=== PATIENT | male | born 1970 | race Caucasian/White ===

== ENCOUNTER → 2016-07-28 | Outpatient (CLI) | payer BC ==
--- NOTE | 2016-07-28 11:44 | RAD ---
Indication knee pain. No history of injury. AP and lateral views of the right knee were obtained. No acute or significant bony finding is seen
== END | disposition home or self-care (01) ==
LOC: DXRAD 11:25
PROVIDERS: ATTEND Physician Assistant
DX: M25.561 Pain in right knee (principal)
CPT/HCPCS: 73560

== ENCOUNTER → 2016-11-15 | Outpatient (CLI) | payer BC ==
--- NOTE | 2016-11-15 15:02 | RAD ---
Indication left rib pain for 3 days. No known injury. A single view of the chest was obtained and is compared to an examination March 02, 2016. Films targeted to left ribs were also obtained. The heart and pulmonary vessels appear normal. There are suspect background changes of fibrosis. There is no consolidated pneumonia. There is no pleural fluid. No pneumothorax is seen. Films of left ribs appear normal. IMPRESSION: No acute finding in the chest. Normal plain films left ribs
== END | disposition home or self-care (01) ==
LOC: DXRADRC 14:46
PROVIDERS: ATTEND Nurse Practitioner Family
DX: R07.81 Pleurodynia (principal)
CPT/HCPCS: 71101

== ENCOUNTER → 2017-02-01 | Outpatient (CLI) | payer BC ==
--- NOTE | 2017-02-01 10:53 | RAD ---
Indication: Right hip pain. Time of exam 0912 hours. 2 views right hip demonstrate normal femoral acetabular alignment. The joint space is maintained. The femoral head and neck are intact. No fractures are seen. Impression: No acute bony abnormality is detected.
--- NOTE | 2017-02-01 10:54 | RAD ---
Indication: Low back pain. Time of exam 0911 hours. Curvature and alignment is normal. Vertebral body heights are maintained. No acute compression fracture is seen. There is multilevel degenerative disc disease with variable disc space narrowing and marginal spurring, greatest L3-4, L4-5 and L5-S1 levels. There are atherosclerotic calcifications within the abdominal aorta. Impression: Lumbar spondylosis. No acute bony abnormality is detected.
== END | disposition home or self-care (01) ==
LOC: DXRAD 08:55
PROVIDERS: ATTEND Nurse Practitioner Family
DX: M51.36 Other intervertebral disc degeneration, lumbar region (principal); M53.87 Other specified dorsopathies, lumbosacral region; I70.0 Atherosclerosis of aorta
CPT/HCPCS: 72100; 73502

== ENCOUNTER → 2017-12-06 | Outpatient (CLI) | payer BC ==
--- NOTE | 2017-12-06 15:36 | RAD ---
Pelvis with right hip, 3 views, 12/06/2017: HISTORY: Chronic right hip pain There is mild narrowing of the right hip joint with subchondral sclerosis and mild marginal spurring. There is a lesser degree of degenerative change at the left hip joint. No fracture or dislocation is identified. The periarticular soft tissues are unremarkable. IMPRESSION: 1. Mild degenerative change at the right hip joint. 2. No acute bony abnormality is detected. Electronically signed by: Senthil Stokes MD (12/06/2017 3:33 PM) [facility]
== END | disposition home or self-care (01) ==
LOC: DXRAD 11:02
PROVIDERS: ATTEND Neuromusculoskeletal Medicine & OMM
DX: M16.11 Unilateral primary osteoarthritis, right hip (principal); M54.16 Radiculopathy, lumbar region
CPT/HCPCS: 73502

== ENCOUNTER 2019-05-09 16:20 | Emergency (ER) | payer BC ==
[~2019-05-09] VITALS: Ht 172.7 cm; Wt 90.4 kg
--- NOTE | 2019-05-09 16:41 | PHYS DOC ---
Past History Past Medical History: Depression, GERD Additional Past Medical Histor: hyperlipidemia (ELAINE RENTERIA DO) Additional Past Surgical Histo: anal fissure, hernia (ELAINE RENTERIA DO) Smoking: Non-smoker Alcohol Use: Rarely Drug Use: None (ELAINE RENTERIA DO) Adult General Chief Complaint Chief Complaint: SHORTNESS OF BREATH [facility] HPI Patient is a 48 year old male who presents for evaluation of chest pressure and shortness of air. Onset of symptoms over the past couple of hours. Symptoms worse with exertion. Earlier today patient had sudden onset of vision changes and could not remember his computer passcode. Those symptoms have resolved. Patient felt dizzy during that episode and felt like he might pass out. His vision changes and dizziness have resolved. Patient has not had similar symptoms like this in the past. Patient had a stress test but was more than 1 year ago. Risk factors include hyperlipidemia (ELAINE RENTERIA DO) Review of Systems Review of Systems Constitutional: Denies fever or chills [] Eyes: Denies change in visual acuity, redness, or eye pain [] HENT: Denies nasal congestion or sore throat [] Respiratory: Denies cough but has shortness of breath [] Cardiovascular: No additional information not addressed in HPI [] GI: Denies abdominal pain, nausea, vomiting, bloody stools or diarrhea [] : Denies dysuria or hematuria [] Musculoskeletal: Denies back pain or joint pain [] Integument: Denies rash or skin lesions [] Neurologic: Denies headache, focal weakness or sensory changes. No focal deficits but was dizzy earlier today [] Endocrine: Denies polyuria or polydipsia [] All other systems were reviewed and found to be within normal limits, except as documented in this note. (ELAINE RENTERIA DO) Allergies Allergies Allergies Coded Allergies Type Severity Reaction Last Updated Verified No Known Drug Allergies 03/02/16 No (ELAINE RENTERIA DO) Physical Exam Physical Exam Constitutional: Well developed, well nourished, mild to moderate distress, non- toxic appearance currently. [] HENT: Normocephalic, atraumatic, bilateral external ears normal, oropharynx moist, no oral exudates, nose normal. [] Eyes: PERRL, EOMI, conjunctiva normal, no discharge. [] Neck: Normal range of motion, no tenderness, supple, no stridor. [] Cardiovascular:Heart rate regular rhythm, no murmur [] Lungs & Thorax: Bilateral breath sounds clear to auscultation [] Abdomen: Bowel sounds normal, soft, no tenderness, no masses, no pulsatile masses. [] Skin: Warm, dry, no erythema, no rash. [] Back: No tenderness, no CVA tenderness. [] Extremities: No tenderness, no cyanosis, no clubbing, ROM intact, no edema. [] Neurologic: Alert and oriented X 3, normal motor function, normal sensory function, no focal deficits noted. [] Psychologic: Affect normal, judgement normal, mood normal. [] (ELAINE RENTERIA DO) Current Patient Data Vital Signs vitals normal, normal O2 sats, not tachycardia (ELAINE RENTERIA DO) EKG EKG Normal sinus rhythm, rate 63, inverted T waves lead III, not STEMI, read at 1636 (ELAINE RENTERIA DO) Radiology/Procedures Radiology/Procedures PATIENT: ADÁN WOLFF ACCOUNT: [id number] : 1970 LOCATION: ER AGE: 48 SEX: M EXAM STATUS: REG ER ORD. PHYSICIAN: ELAINE RENTERIA DO REASON: short of air, chest pressure PROCEDURE: PORTABLE CHEST 1V Examination: PORTABLE CHEST 1V History: Shortness of breath, chest pressure Comparison/Correlation: 03/02/2016 2 view chest x-ray exam, 11/15/2016 left RIBS with PA view of the chest Findings: Portable frontal view of chest was obtained. Heart size and pulmonary vasculature are normal. No infiltrate or pleural effusion. No pneumothorax. Bony structures are unremarkable. Subtle dextro convexity of the thoracic spine is present. Impression: No suspicious process. Electronically signed by: Dale Harvey MD (05/09/2019 5:05 PM) [id number] DICTATED AND SIGNED BY: DALE HARVEY MD DATE: 05/09/191704 CC: SHABANA DILLARD; ELAINE RENTERIA DO ~ Impressions: Signed PATIENT: ADÁN WOLFF ACCOUNT: [id number] : 1970 LOCATION: ER AGE: 48 SEX: M EXAM STATUS: REG ER ORD. PHYSICIAN: ELAINE RENTERIA DO REASON: dizziness, near syncope PROCEDURE: CT HEAD WO CONTRAST CT HEAD WO CONTRAST History: Dizziness, near syncope Comparison: None. Technique: Noncontrast CT imaging was performed of the head. Exposure: One or more of the following individualized dose reduction techniques were utilized for this examination: 1. Automated exposure control 2. Adjustment of the mA and/or kV according to patient size 3. Use of iterative reconstruction technique. Findings: No acute extra-axial or parenchymal hemorrhage is identified. There is no significant intra-axial mass effect, midline shift, or extra-axial fluid collection. The mcgregor-white differentiation of the major vascular territories is preserved. The ventricles, sulci, and cisterns are within normal limits in size and configuration. The mastoid air cells and the visualized paranasal sinuses are aerated. No acute calvarial abnormality is identified. Impression: 1. No acute intracranial abnormality is identified. Electronically signed by: Rosana Tirado MD (05/09/2019 5:11 PM) [id number] DICTATED AND SIGNED BY: ROSANA TIRADO MD DATE: 05/09/19 171 CC: SHABANA DILLARD; ELAINE RENTERIA DO ~ (ELAINE RENTERIA DO) Radiology/Procedures PROCEDURE: CT ANGIOGRAPHY CHEST EXAM: CT chest with contrast - pulmonary embolus protocol CLINICAL HISTORY: chest pain/pressure, shortness of air. COMPARISON: None. TECHNIQUE: CT of the chest following the administration of intravenous contrast during the pulmonary arterial phase. Axial, coronal and sagittal reformatted images were generated including MIP images. ---PQRS compliance statement - One or more of the following individualized dose reduction techniques were utilized for this study: 1. Automated exposure control 2. Adjustment of the mA and/or kV according to patient size 3. Use of iterative reconstruction technique--- FINDINGS: CHEST: Diagnostic quality: Adequate. Pulmonary emboli: None seen Right heart strain: None Pulmonary arteries: Normal in caliber. Heart is not enlarged. No pericardial effusion. Coronary artery calcifications are seen. Mild ectasia ascending aorta. No pleural effusion or pneumothorax. No axillary lymphadenopathy. No mediastinal or hilar lymphadenopathy. Linear opacities lower lobes and lingula likely scarring/atelectasis. Left upper lobe calcified granuloma. No suspicious lung nodule or mass is seen. Visualized Upper abdomen: Unremarkable Bones: No aggressive osseous lesion is seen. IMPRESSION: 1. No evidence for acute pulmonary embolus. 2. Linear opacities bilaterally likely scarring/atelectasis. No lobar consolidation. Electronically signed by: Abraham Harris MD (05/09/2019 7:06 PM) [id number] (SARWAT AL DO) Course & Med Decision Making Course & Med Decision Making Pertinent Labs and Imaging studies reviewed. (See chart for details) 1740 stable, feels better at this time. Patient has some minimal chest pressure at this time. CT head was negative for acute findings. Patient has no focal deficits or lateralizing signs. Dose of aspirin added in light of that negative CT finding. Initial cardiac marker, EKG and other lab work are unremarkable. Chest x-ray was clear. In light of patient's unusual symptoms a CT chest PE protocol ordered 1800 patient is chest pain-free at rest. Additional information just provided is that he is significant other was diagnosed with influenza about a week ago. Care of patient will be assumed by Dr. Al at shift change. We will get repeat troponin at 1835. Differential diagnosis includes cardiac, IN, pneumonia, pneumothorax, pulmonary embolism, rhythm disturbance (ELAINE RENTERIA DO) Dragon Disclaimer Dragon Disclaimer This electronic medical record was generated, in whole or in part, using a voice recognition dictation system. (ELAINE RENTERIA DO) Departure Departure: Impression: Primary Impression: Chest pain Additional Impressions: Dyspnea Syncope, near Disposition: 01 HOME, SELF-CARE Condition: STABLE Referrals: SHABANA DILLARD (PCP) SABRINA GONZALEZ MD Patient Instructions: Chest Pain (Nonspecific), Eguk-xw-Lbas, Near-Syncope, Gbvg-gy-Fsya, Shortness of Breath, Tghv-rs-Suen HEART Score for Chest Pain PTs The HEART Score for CP Pts HEART Score for Chest Pain: HEART Score for Chest Pain Response (Comments) Value History Slighlty/Non-Suspicious 0 ECG Normal 0 Age >45 - < 65 1 Risk Factors 1 or 2 Risk Factors 1 Troponin < Normal Limit 0 Total 2 Risk Factors: Risk Factors: DM, Current or recent (<one month) smoker, HTN, HLP, family history of CAD, obesity. Risk Scores: Score 0 - 3: 2.5% MACE over next 6 weeks - Discharge Home Score 4 - 6: 20.3% MACE over next 6 weeks - Admit for Clinical Observation Score 7 - 10: 72.7% MACE over next 6 weeks - Early Invasive Strategies (ELAINE RENTERIA DO) Problem Qualifiers Primary Impression: Chest pain Chest pain type: unspecified Qualified Codes: R07.9 - Chest pain, unspecified Additional Impressions: Dyspnea Dyspnea type: unspecified Qualified Codes: R06.00 - Dyspnea, unspecified ELAINE RENTERIA DO May 09, 2019 16:41 ALSARWAT DO May 09, 2019 19:32
[2019-05-09 16:56] VITALS: BP 125/95
--- NOTE | 2019-05-09 17:08 | RAD ---
Examination: PORTABLE CHEST 1V History: Shortness of breath, chest pressure Comparison/Correlation: 03/02/2016 2 view chest x-ray exam, 11/15/2016 left RIBS with PA view of the chest Findings: Portable frontal view of chest was obtained. Heart size and pulmonary vasculature are normal. No infiltrate or pleural effusion. No pneumothorax. Bony structures are unremarkable. Subtle dextro convexity of the thoracic spine is present. Impression: No suspicious process. Electronically signed by: Dale Cabral MD (05/09/2019 5:05 PM) [id number]
[2019-05-09 17:09] LABS: BASO % 1 % (0-3); EOS # 0.1 x10^3/uL (0.0-0.7); EOS % 2 % (0-3); HEMATOCRIT 40.3 % (39.0-53.0); HEMOGLOBIN 14.1 g/dL (13.0-17.5); LYMPH # 1.8 x10^3/uL (1.0-4.8); LYMPH % 35 % (24-48); MEAN CORPUSCULAR HEMOGLOBIN 33 pg (25-35); MEAN CORPUSCULAR HGB CONC 35 g/dL (31-37); MEAN CORPUSCULAR VOLUME 93 fL (79-100); MONO # 0.4 x10^3/uL (0.0-1.1); MONO % 8 % (0-9); NEUT # 2.8 x10^3uL (1.8-7.7); NEUT % 54 % (31-73); PLATELET COUNT 237 x10^3/uL (140-400); RED BLOOD COUNT 4.33 x10^6/uL (4.30-5.70); RED CELL DISTRIBUTION WIDTH 13.2 % (11.5-14.5); WHITE BLOOD COUNT 5.1 x10^3/uL (4.0-11.0)
--- NOTE | 2019-05-09 17:13 | RAD ---
CT HEAD WO CONTRAST History: Dizziness, near syncope Comparison: None. Technique: Noncontrast CT imaging was performed of the head. Exposure: One or more of the following individualized dose reduction techniques were utilized for this examination: 1. Automated exposure control 2. Adjustment of the mA and/or kV according to patient size 3. Use of iterative reconstruction technique. Findings: No acute extra-axial or parenchymal hemorrhage is identified. There is no significant intra-axial mass effect, midline shift, or extra-axial fluid collection. The mcgregor-white differentiation of the major vascular territories is preserved. The ventricles, sulci, and cisterns are within normal limits in size and configuration. The mastoid air cells and the visualized paranasal sinuses are aerated. No acute calvarial abnormality is identified. Impression: 1. No acute intracranial abnormality is identified. Electronically signed by: Yared Saunders MD (05/09/2019 5:11 PM) [id number]
[2019-05-09 17:20] LABS: CALCIUM 8.7 mg/dL (8.5-10.1); CREATININE 0.9 mg/dL (0.7-1.3); GFR 90.1; POTASSIUM 3.7 mmol/L (3.5-5.1)
[2019-05-09 17:28] LABS: ALBUMIN 3.9 g/dL (3.4-5.0); ALBUMIN/GLOBULIN RATIO 1.2 (1.0-1.7); TOTAL BILIRUBIN 0.4 mg/dL (0.2-1.0); TOTAL PROTEIN 7.2 g/dL (6.4-8.2)
--- NOTE | 2019-05-09 17:53 | EKG ---
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
[2019-05-09] MEDS ORDERED: IOHEXOL 350 MG/ML 100 ML VIAL. IV ONE (18:00)
[2019-05-09] MEDS ORDERED: CONTRAST GIVEN MC PRN (18:15)
[2019-05-09] MEDS ORDERED: ASPIRIN 81 MG TAB.CHEW PO ONE (18:15)
--- NOTE | 2019-05-09 19:09 | RAD ---
EXAM: CT chest with contrast - pulmonary embolus protocol CLINICAL HISTORY: chest pain/pressure, shortness of air. COMPARISON: None. TECHNIQUE: CT of the chest following the administration of intravenous contrast during the pulmonary arterial phase. Axial, coronal and sagittal reformatted images were generated including MIP images. ---PQRS compliance statement - One or more of the following individualized dose reduction techniques were utilized for this study: 1. Automated exposure control 2. Adjustment of the mA and/or kV according to patient size 3. Use of iterative reconstruction technique--- FINDINGS: CHEST: Diagnostic quality: Adequate. Pulmonary emboli: None seen Right heart strain: None Pulmonary arteries: Normal in caliber. Heart is not enlarged. No pericardial effusion. Coronary artery calcifications are seen. Mild ectasia ascending aorta. No pleural effusion or pneumothorax. No axillary lymphadenopathy. No mediastinal or hilar lymphadenopathy. Linear opacities lower lobes and lingula likely scarring/atelectasis. Left upper lobe calcified granuloma. No suspicious lung nodule or mass is seen. Visualized Upper abdomen: Unremarkable Bones: No aggressive osseous lesion is seen. IMPRESSION: 1. No evidence for acute pulmonary embolus. 2. Linear opacities bilaterally likely scarring/atelectasis. No lobar consolidation. Electronically signed by: Abraham Harris MD (05/09/2019 7:06 PM) [id number]
[2019-05-09 19:19] LABS: INFLUENZA A PATIENT NEGATIVE (NEGATIVE); INFLUENZA B PATIENT NEGATIVE (NEGATIVE)
== END 2019-05-09 20:00 | disposition home or self-care (01) ==
LOC: ER 16:20
DX: R07.89 Other chest pain (principal); R55 Syncope and collapse; K21.9 Gastro-esophageal reflux disease without esophagitis; F32.9 Major depressive disorder, single episode, unspecified
CPT/HCPCS: 36415; 70450; 71045; 71275; 80053; 83690; 84484; 85025; 87804; 93005; 99285; Q9967